=== PATIENT | female | born 1950 ===

== ENCOUNTER 2017-03-10 03:23 | Emergency (ER) | payer MEDICAID ==
[2017-03-10] MEDS ORDERED: Sodium Chloride 0.9% 500 ML IV ONE ×2 (03:46→03:55)
[2017-03-10 04:09] LABS: ALBUMIN 3.8 g/dL (3.5-5.0); BASO % 0.3 % (0.0-2.0); EOS # 0.1 K/uL (0.0-0.7); EOS % 0.4 % (0.0-4.0); HEMOGLOBIN 15.1 g/dL (11.0-16.0); LYMPH # 11.6 K/uL (1.0-4.3); LYMPH % 71.9 % (20.0-40.0); MEAN CELL VOLUME 92.2 fL (81.0-99.0); MEAN CORPUSCULAR HEMOGLOBIN 31.6 pg (27.0-31.0); MEAN CORPUSCULAR HGB CONC 34.3 g/dL (33.0-37.0); MEAN PLATELET VOLUME 8.6 fL (7.2-11.7); MONO # 0.8 K/uL (0.0-0.8); MONO % 5.2 % (0.0-10.0); NEUT # 3.6 K/uL (1.8-7.0); NEUT % 22.2 % (50.0-75.0); NRBC % 0.1 % (0.0-2.0); PLATELET COUNT 213 K/uL (130-400); RBC 4.77 Mil/uL (3.80-5.20); RED CELL DISTRIBUTION WIDTH 14.7 % (11.5-14.5); WHITE BLOOD COUNT 16.1 K/uL (4.8-10.8)
[2017-03-10 04:12] LABS: ALB/GLOB RATIO 1.4 (1.0-2.1); AST/SGOT 21 U/L (14-36); GFR AFRICAN-AMERICAN > 60; GFR NON-AFRICAN AMERICAN > 60
[2017-03-10 04:13] LABS: ALT/SGPT 32 U/L (9-52); BLOOD UREA NITROGEN 10 mg/dL (7-17); CALCIUM 9.2 mg/dl (8.6-10.4)
--- NOTE | 2017-03-10 04:19 | C.PDOC ---
History Of Present Illness 67 year old female who presents to the ER for a complaint of generalized weakness, malaise, bodyaches and brief episode of palpitations. As per daughter , patient woke up due to a brief episode of palpitations and felt weak. Daughter states patient's accucheck machine is broken; however, she reports patient took her regular dose of insulin prior to bed. Denies changes in speech , chest pain, SOB, or URI symptoms. Time Seen by Provider: 03/10/17 03:44 Chief Complaint (Nursing): Weakness/Neurological Deficit History Per: Family History/Exam Limitations: no limitations Onset/Duration Of Symptoms: Hrs Current Symptoms Are (Timing): Still Present Activity At Onset Of Symptoms: Lying Seizure Or Post-ictal Symptoms: None Fall Associated With With Symptoms: No Recent travel outside of the [place]: No - Symptoms Of CVA Associated Symptoms: denies: Impaired Speech, Seizure Activity, New Vision Deficit(Left), New Vision Deficit(Right), Decreased Ability To Walk, New Confusion, Other Past Medical History Reviewed: Historical Data, Nursing Documentation, Vital Signs Vital Signs: Last Vital Signs Temp 98 F 03/10/17 06:11 Pulse 71 03/10/17 06:11 Resp 19 03/10/17 06:11 BP 143/71 03/10/17 06:11 Pulse Ox 100 03/10/17 06:19 - Medical History PMH: HTN Surgical History: No Surg Hx Family History: States: Unknown Family Hx - Social History Hx Alcohol Use: No Hx Substance Use: No - Immunization History Hx Tetanus Toxoid Vaccination: No Hx Influenza Vaccination: No Hx Pneumococcal Vaccination: No Review Of Systems Constitutional: Positive for: Chills, Weakness, Malaise ENT: Negative for: Ear Pain, Nose Congestion, Mouth Pain, Throat Swelling Cardiovascular: Positive for: Palpitations. Negative for: Chest Pain Respiratory: Negative for: Cough, Shortness of Breath, Wheezing Gastrointestinal: Negative for: Nausea, Vomiting Neurological: Positive for: Weakness (generalized ). Negative for: Numbness, Change in Speech, Dizziness Physical Exam - Physical Exam Appears: Non-toxic, Other (Awake, Alert) Skin: Normal Color, Warm, Dry Head: Atraumatic, Normacephalic Eye(s): bilateral: Normal Inspection, PERRL, EOMI Nose: Normal Oral Mucosa: Moist Neck: Normal, Supple Chest: Symmetrical, No Tenderness Cardiovascular: Rhythm Regular, No Murmur Respiratory: Normal Breath Sounds, No Rales, No Rhonchi, No Wheezing Gastrointestinal/Abdominal: Soft, No Tenderness, No Distention Back: Normal Inspection, No CVA Tenderness Extremity: Normal ROM (x4), No Tenderness, No Pedal Edema, No Swelling Neurological/Psych: Oriented x3, Normal Speech, Normal Cognition, Normal Motor, Normal Sensation ED Course And Treatment - Laboratory Results Result Diagrams: 03/10/17 03:53 03/10/17 03:53 ECG: Interpreted By Me, Viewed By Me ECG Rhythm: Sinus Rhythm Interpretation Of ECG: No acute st/t findings Rate From EC O2 Sat by Pulse Oximetry: 100 (Room air) Pulse Ox Interpretation: Normal Progress Note: EKG and blood work ordered. IV fluids administered. Reevaluation Time: 06:02 Reassessment Condition: Improved (Pt feels better after IVF hydration, labs reviewed with WBC 16,000. Pt's UA and CXR appears normal, pt ws given PO K+ and feels bbetter to go home, Pt agrees with plan and will follow up in clinic. Pt understands to return if more symptoms develop or worsened. Pt tolerated PO and is fully ambulatory in ED) Disposition - Disposition Referrals: John Phoenix MD [Primary Care Provider] - Disposition: HOME/ ROUTINE Disposition Time: 06:15 Condition: STABLE Additional Instructions: Please increase fluids Bed rest Take meds as directed Sigue con funez doctor Regresa si peor Prescriptions: Aluminum Hydroxide/Magnesium H [Maalox 30 ml] 30 ml PO BID #100 ml Famotidine [Pepcid] 20 mg PO DAILY #20 tab Instructions: Viral Syndrome (ED) Print Language: ARMENIAN - Clinical Impression Clinical Impression: Viral illness, Hypokalemia - Scribe Statement The provider has reviewed the documentation as recorded by the Scribsatya Eng All medical record entries made by the Scribe were at my direction and personally dictated by me. I have reviewed the chart and agree that the record accurately reflects my personal performance of the history, physical exam, medical decision making, and the department course for this patient. I have also personally directed, reviewed, and agree with the discharge instructions and disposition.
[2017-03-10] MEDS ORDERED: Potassium Chloride 20 mEq ER Tab PO STA (04:28)
[2017-03-10] MEDS ORDERED: Potassium Chloride 20 mEq ER Tab PO ONE (04:37)
[2017-03-10 05:04] LABS: SQUAMOUS EPITHIAL 1 /hpf (0-5); URINE BILIRUBIN NEGATIVE (NEGATIVE); URINE BLOOD NEGATIVE (NEGATIVE); URINE CLARITY Clear (Clear); URINE COLOR Straw (YELLOW); URINE GLUCOSE (UA) 1+ mg/dL (Normal); URINE LEUKOCYTE ESTERASE NEG Leu/uL (Negative); URINE NITRATE NEGATIVE (NEGATIVE); URINE PROTEIN NEGATIVE (NEGATIVE); URINE UROBILINOGEN NORMAL mg/dL (0.2-1.0)
[2017-03-10 05:19] LABS: LYMPHOCYTE 51 % (20-40); MONOCYTE 6 % (0-10); NEUTROPHIL 25 % (50-75); REACTIVE LYMPHOCYTES 18 % (0-0); TOTAL CELLS COUNTED 100
[2017-03-10 05:20] LABS: PLATELET ESTIMATE NORMAL (NORMAL)
[2017-03-10] MEDS ORDERED: Aluminum Hydroxide/Magnesium Hydroxide Susp (30 mL) PO STA (05:58)
[2017-03-10] MEDS ORDERED: Aluminum Hydroxide/Magnesium Hydroxide Susp (30 mL) ONE (06:10)
[2017-03-10 06:11] VITALS: O2SAT 100
[2017-03-10 06:12] VITALS: BP 143/71; PULSE 71; RESP 19; TEMP 98
--- NOTE | 2017-03-10 08:36 | RAD ---
HISTORY: cough COMPARISON: No prior. TECHNIQUE: Chest PA and lateral FINDINGS: LUNGS: Mild venous congestion. Bibasilar breast and nipple shadows. Mild patchy increased markings at the left lung base, nonspecific. PLEURA: No significant pleural effusion identified. No pneumothorax apparent. CARDIOVASCULAR: Normal. OSSEOUS STRUCTURES: No significant abnormalities. VISUALIZED UPPER ABDOMEN: Normal. OTHER FINDINGS: None. IMPRESSION: Mild venous congestion. Bibasilar breast and nipple shadows. Mild patchy increased markings at the left lung base, nonspecific.
--- NOTE | 2017-03-10 19:34 | CARD ---
APPROVED REPORT EKG Measurement Heart [id number] CT [id number] <Conclusion> Normal sinus rhythm Septal infarct, age undetermined Abnormal ECG
== END 2017-03-10 06:28 | disposition home or self-care (01) ==
LOC: SUPCPDRO 03:23 → C.ER 03:23
DX: B34.9 Viral infection, unspecified (principal); E87.6 Hypokalemia
CPT/HCPCS: 71020; 80053; 81001; 82948; 85025; 93005; 99285; J7040